=== PATIENT | female | born 2000 | race Two or more races ===

== ENCOUNTER 2024-10-02 15:26 | Emergency (ER) | payer OTHER ==
[~2024-10-02] VITALS: Ht 152.4 cm; Wt 62.1 kg
[2024-10-02] MEDS ORDERED: IPRATROPIUM/ALBUTEROL SULFATE 3 ML AMPUL.NEB IH SCH (16:45)
[2024-10-02] MEDS ORDERED: METHYLPREDNISOLONE SOD SUCC 125 MG VIAL IV ONE (16:45)
[2024-10-02] MEDS ORDERED: BUDESONIDE 0.5 MG/2 ML AMPUL.NEB IH ONE (16:45)
[2024-10-02] MEDS ORDERED: MAGNESIUM SULFATE IN WATER 50 ML IV ONE (16:45)
[2024-10-02 18:11] LABS: BASO % 0.3 % (0.1-1.2); EOS # 0.05 (0.04-0.54); EOS % 0.5 % (0.7-7.0); LYMPH # 1.45 (1.18-3.74); LYMPH % 13.7 % (19.3-53.1); MEAN PLATELET VOLUME 10.00 fl (9.4-12.4); MONO # 0.37 (0.24-0.82); MONO % 3.5 % (4.7-12.5); NEUT # 8.62 (1.56-6.13); NEUT % 81.6 % (34.0-71.1); RED CELL DISTRIBUTION WIDTH 11.9 % (11.6-14.4)
[2024-10-02 18:27] LABS: COVID-19 AG NEGATIVE (NEGATIVE)
[2024-10-02 18:34] LABS: ALT/SGPT 26.0 U/L (12-78); AST/SGOT 15.0 U/L (15-37); BILIRUBIN TOTAL 0.45 mg/dL (0.3-1.2); BUN CREA RATIO 18.0 (7.0-25.0); CREATININE SERUM 0.72 mg/dL (0.55-1.02); GFR 99.52; GLOBULINA 4.8 G/DL (2.4-3.5); GLUCOSE FASTING 106.0 mg/dL (65-100); OSMOLALITY SERUM 276.0 MOSM/KG (275-295)
[2024-10-02] MEDS ORDERED: AZITHROMYCIN500 MG PO (18:49)
[2024-10-02] MEDS ORDERED: BUDESONIDE0.5 MG/2 M IH (18:49)
[2024-10-02] MEDS ORDERED: BENZONATATE200 M1 PO (18:49)
[2024-10-02] MEDS ORDERED: MEDROLPACK PO (18:49)
[2024-10-02] MEDS ORDERED: SINGULAIR10 MG PO (19:00)
== END 2024-10-02 21:14 | disposition home or self-care (01) ==
LOC: ER 15:26
PROVIDERS: Preventive Medicine Public Health & General Preventive Medicine
DX: J45.901 Unspecified asthma with (acute) exacerbation (principal); J45.909 Unspecified asthma, uncomplicated; Z20.822 Contact with and (suspected) exposure to COVID-19

== ENCOUNTER 2025-01-26 14:30 | Emergency (ER) | payer OTHER ==
[~2025-01-26] VITALS: Ht 152.4 cm; Wt 68.0 kg
[~2025-01-26 14:30] MED LIST: AZITHROMYCIN500 MG PO; BENZONATATE200 M1 PO; BUDESONIDE0.5 MG/2 M IH; MEDROLPACK PO; SINGULAIR10 MG PO
[2025-01-26] MEDS ORDERED: AZITHROMYCIN250 MG PO (15:51)
[2025-01-26] MEDS ORDERED: ALBUTEROL SULFATE 3 ML/2.5 MG AMPUL.NEB IH SCH (16:15)
[2025-01-26] MEDS ORDERED: 0.9 % SODIUM CHLORIDE 1,000 ML IV ONE (16:15)
[2025-01-26] MEDS ORDERED: ACETAMINOPHEN 500 MG GEL..CAP PO ONE ×2 (16:15→18:55)
[2025-01-26] MEDS ORDERED: METHYLPREDNISOLONE SOD SUCC 125 MG VIAL IV ONE (16:15)
[2025-01-26] MEDS ORDERED: GUAIFENESIN 200 MG/10 ML BLIST.PACK PO ONE ×2 (16:15→18:56)
[2025-01-26] MEDS ORDERED: IPRATROPIUM BROMIDE 0.5 MG/2.5 ML AMPUL.NEB IH ONE ×2 (16:15→19:18)
[2025-01-26] MEDS ORDERED: METHYLPREDNISOLONE SOD SUCC 125 MG VIAL ONE (18:56)
[2025-01-26] MEDS ORDERED: ALBUTEROL SULFATE 3 ML/2.5 MG AMPUL.NEB IH ONE (19:18)
[2025-01-26 19:29] LABS: BASO % 0.7 % (0.1-1.2); EOS # 0.56 (0.04-0.54); EOS % 7.4 % (0.7-7.0); LYMPH # 2.71 (1.18-3.74); LYMPH % 35.8 % (19.3-53.1); MEAN PLATELET VOLUME 9.90 fl (9.4-12.4); MONO # 0.60 (0.24-0.82); MONO % 7.9 % (4.7-12.5); NEUT # 3.64 (1.56-6.13); NEUT % 48.1 % (34.0-71.1); RED CELL DISTRIBUTION WIDTH 12.4 % (11.6-14.4)
[2025-01-26 20:06] LABS: ALT/SGPT 38.0 U/L (12-78); AST/SGOT 24.0 U/L (15-37); BILIRUBIN TOTAL 0.26 mg/dL (0.3-1.2); BUN CREA RATIO 20.0 (7.0-25.0); CREATININE SERUM 0.64 mg/dL (0.55-1.02); GFR 113.06; GLOBULINA 4.2 G/DL (2.4-3.5); GLUCOSE FASTING 89.0 mg/dL (65-100); OSMOLALITY SERUM 285.0 MOSM/KG (275-295)
[2025-01-26 21:03] LABS: URINE APPEARANCE Clear; URINE BILIRRUBIN Negative (NEGATIVE); URINE BLOOD Negative; URINE COLOR Yellow; URINE GLUCOSE Negative (NEGATIVE); URINE KETONE Trace (NEGATIVE); URINE LEUKOCYTE Negative; URINE NITRATE Negative; URINE PROTEIN Negative (NEGATIVE); URINE UROBILINOGEN 1.0 E.U./dl
[2025-01-26 21:07] LABS: URINE BACTERIA 71.9 uL (0.0-1933); URINE EPITHELIAL CELLS 2.4 uL (0.0-38.8)
[2025-01-26 21:18] LABS: COVID-19 AG NEGATIVE (NEGATIVE)
[2025-01-26 21:28] LABS: URINE CAST 0.14 uL (0.0-1.40); URINE RBC 1.1 uL (0.0-20.8); URINE WBC 1.5 uL (0.0-23.2)
[2025-01-26] MEDS ORDERED: MEDROLPACK PO (21:48)
[2025-01-26] MEDS ORDERED: BENZONATATE100 MG PO (21:48)
[2025-01-26] MEDS ORDERED: ALBUTEROL1.25 MG/3 IH (21:48)
== END 2025-01-26 22:01 | disposition home or self-care (01) ==
LOC: ER 14:31
DX: J45.901 Unspecified asthma with (acute) exacerbation (principal); Z20.822 Contact with and (suspected) exposure to COVID-19

== ENCOUNTER 2025-01-30 17:56 | Emergency (ER) | payer OTHER ==
[~2025-01-30] VITALS: Ht 152.4 cm; Wt 68.0 kg
[~2025-01-30 17:56] MED LIST changes: +ALBUTEROL1.25 MG/3 IH; +AZITHROMYCIN250 MG PO; +BENZONATATE100 MG PO
[2025-01-30] MEDS ORDERED: MAGNESIUM SULFATE IN WATER 50 ML IV ONE (18:30)
[2025-01-30] MEDS ORDERED: METHYLPREDNISOLONE SOD SUCC 125 MG VIAL IV ONE (18:30)
[2025-01-30] MEDS ORDERED: IPRATROPIUM BROMIDE 0.5 MG/2.5 ML AMPUL.NEB IH SCH (18:30)
[2025-01-30] MEDS ORDERED: LEVALBUTEROL HCL 1.25 MG/3 ML SOLUTION IH SCH (18:30)
[2025-01-30] MEDS ORDERED: LEVALBUTEROL HCL 1.25 MG/3 ML SOLUTION IH ONE (19:32)
[2025-01-30] MEDS ORDERED: IPRATROPIUM BROMIDE 0.5 MG/2.5 ML AMPUL.NEB IH ONE (19:33)
[2025-01-30] MEDS ORDERED: MAGNESIUM SULFATE 50% 1,000 MG/2 ML VIAL ONE (19:34)
[2025-01-30] MEDS ORDERED: METHYLPREDNISOLONE SOD SUCC 125 MG VIAL ONE (19:35)
[2025-01-30 20:14] LABS: BASO % 0.1 % (0.1-1.2); EOS # 0.00 (0.04-0.54); EOS % 0.0 % (0.7-7.0); LYMPH # 0.92 (1.18-3.74); LYMPH % 6.9 % (19.3-53.1); MEAN PLATELET VOLUME 9.70 fl (9.4-12.4); MONO # 1.38 (0.24-0.82); MONO % 10.4 % (4.7-12.5); NEUT # 10.86 (1.56-6.13); NEUT % 81.8 % (34.0-71.1); RED CELL DISTRIBUTION WIDTH 12.5 % (11.6-14.4)
[2025-01-30 20:40] LABS: ALT/SGPT 33 U/L (12-78); AST/SGOT 23 U/L (15-37); BILIRUBIN TOTAL 0.43 mg/dL (0.3-1.2); BUN CREA RATIO 14 (7.0-25.0); CREATININE SERUM 0.72 mg/dL (0.55-1.02); GFR 98.69; GLOBULINA 4.1 G/DL (2.4-3.5); GLUCOSE FASTING 101 mg/dL (65-100); HCG QUANTITATIVE < 1 mUI/mL (1-3); OSMOLALITY SERUM 279 MOSM/KG (275-295)
[2025-01-30] MEDS ORDERED: PEPCID AC20 MG PO (20:54)
[2025-01-30] MEDS ORDERED: AZITHROMYCIN500 MG PO (20:54)
[2025-01-30] MEDS ORDERED: SINGULAIR10 MG PO (20:54)
[2025-01-30] MEDS ORDERED: MEDROLPACK PO (20:54)
== END 2025-01-30 21:23 | disposition home or self-care (01) ==
LOC: ER 17:56
PROVIDERS: General Practice
DX: J45.901 Unspecified asthma with (acute) exacerbation (principal); R06.02 Shortness of breath

== ENCOUNTER 2025-02-01 13:46 | Emergency (ER) | payer OTHER ==
[~2025-02-01] VITALS: Ht 152.4 cm; Wt 68.0 kg
[~2025-02-01 13:46] MED LIST changes: +PEPCID AC20 MG PO
[2025-02-01] MEDS ORDERED: ZITHROMAX500 MG PO (14:48)
[2025-02-01] MEDS ORDERED: PEPCID AC20 MG PO (14:48)
[2025-02-01] MEDS ORDERED: IPRATROPIUM BROMIDE 0.5 MG/2.5 ML AMPUL.NEB IH SCH (15:15)
[2025-02-01] MEDS ORDERED: LEVALBUTEROL HCL 1.25 MG/3 ML SOLUTION IH SCH (15:15)
[2025-02-01] MEDS ORDERED: GUAIFENESIN/DEXTROMETHORPHAN 100MG/10ML BLIST.PACK PO ONE (15:15)
[2025-02-01] MEDS ORDERED: METHYLPREDNISOLONE SOD SUCC 125 MG VIAL IV ONE (15:15)
[2025-02-01] MEDS ORDERED: METHYLPREDNISOLONE SOD SUCC 125 MG VIAL ONE (15:59)
[2025-02-01] MEDS ORDERED: GUAIFEN/DEXTROMETHORPHAN/PE 10 ML BLIST.PACK PO ONE (15:59)
[2025-02-01] MEDS ORDERED: IPRATROPIUM BROMIDE 0.5 MG/2.5 ML AMPUL.NEB IH ONE (16:32)
[2025-02-01] MEDS ORDERED: LEVALBUTEROL HCL 1.25 MG/3 ML SOLUTION IH ONE (16:32)
[2025-02-01 16:57] LABS: BASO % 0.2 % (0.1-1.2); EOS # 0.09 (0.04-0.54); EOS % 1.4 % (0.7-7.0); LYMPH # 1.93 (1.18-3.74); LYMPH % 30.4 % (19.3-53.1); MEAN PLATELET VOLUME 9.60 fl (9.4-12.4); MONO # 0.96 (0.24-0.82); NEUT # 3.33 (1.56-6.13); NEUT % 52.4 % (34.0-71.1); RED CELL DISTRIBUTION WIDTH 12.7 % (11.6-14.4)
[2025-02-01 17:07] LABS: MONO % 15.1 % (4.7-12.5)
[2025-02-01 17:24] LABS: COVID-19 AG NEGATIVE (NEGATIVE)
[2025-02-01 17:36] LABS: ALT/SGPT 44.0 U/L (12-78); AST/SGOT 25.0 U/L (15-37); BILIRUBIN TOTAL 0.3 mg/dL (0.3-1.2); BUN CREA RATIO 22.0 (7.0-25.0); CREATININE SERUM 0.79 mg/dL (0.55-1.02); GFR 88.67; GLOBULINA 4.2 G/DL (2.4-3.5); GLUCOSE FASTING 90.0 mg/dL (65-100); OSMOLALITY SERUM 279.0 MOSM/KG (275-295)
[2025-02-01] MEDS ORDERED: TUSSIN DM LIQU118 ML PO (18:03)
[2025-02-01] MEDS ORDERED: OSEL75CA PO (18:03)
[2025-02-01] MEDS ORDERED: SINGULAIR10 MG PO (18:03)
[2025-02-01] MEDS ORDERED: OSELTAMIVIR PHOSPHATE 75 MG CAPSULE PO ONE ×2 (18:15→18:33)
[2025-02-01] MEDS ORDERED: ALBUTEROL1.25 MG/3 IH (18:20)
== END 2025-02-01 21:24 ==
LOC: ER 13:47
PROVIDERS: General Practice
DX: J10.1 Influenza due to other identified influenza virus with other respiratory manifestations (principal); J45.998 Other asthma; Z20.822 Contact with and (suspected) exposure to COVID-19

== ENCOUNTER 2025-02-03 07:40 | Emergency (ER) | payer OTHER ==
[~2025-02-03] VITALS: Ht 152.4 cm; Wt 68.0 kg
[~2025-02-03 07:40] MED LIST changes: +OSEL75CA PO; +TUSSIN DM LIQU118 ML PO; +ZITHROMAX500 MG PO
[2025-02-03] MEDS ORDERED: PYRIDIUM200 MG PO (08:00)
[2025-02-03] MEDS ORDERED: CLINDAMYCIN HC300 MG PO (08:01)
[2025-02-03] MEDS ORDERED: DEXAMETHASONE SODIUM PHOSPHATE 4 MG/ML VIAL IM STA (08:27)
[2025-02-03] MEDS ORDERED: DEXAMETHASONE SODIUM PHOSPHATE 4 MG/ML VIAL ONE (08:30)
[2025-02-03 08:59] LABS: BASO % 0.1 % (0.1-1.2); EOS # 0.03 (0.04-0.54); EOS % 0.4 % (0.7-7.0); LYMPH # 2.56 (1.18-3.74); LYMPH % 34.7 % (19.3-53.1); MEAN PLATELET VOLUME 9.40 fl (9.4-12.4); MONO # 0.91 (0.24-0.82); NEUT # 3.83 (1.56-6.13); NEUT % 52.0 % (34.0-71.1); RED CELL DISTRIBUTION WIDTH 12.5 % (11.6-14.4)
[2025-02-03 09:00] LABS: MONO % 12.3 % (4.7-12.5)
[2025-02-03 09:01] LABS: URINE APPEARANCE Clear; URINE BILIRRUBIN Small (NEGATIVE); URINE BLOOD Negative; URINE COLOR Orange; URINE GLUCOSE Negative (NEGATIVE); URINE KETONE Negative (NEGATIVE); URINE LEUKOCYTE Small; URINE NITRATE Positive; URINE PROTEIN 30 (NEGATIVE); URINE UROBILINOGEN 1.0 E.U./dl
[2025-02-03 09:03] LABS: ERYTHROCYTE SEDIMENTATION RATE 22 mm/hr (0-20)
[2025-02-03 09:05] LABS: URINE BACTERIA 57.5 uL (0.0-1933); URINE EPITHELIAL CELLS 4.4 uL (0.0-38.8); URINE RBC 2.3 uL (0.0-20.8)
[2025-02-03 09:49] LABS: URINE CAST 0.14 uL (0.0-1.40); URINE WBC 1.3 uL (0.0-23.2)
[2025-02-03 11:00] LABS: ALT/SGPT 44.0 U/L (12-78); AST/SGOT 19.0 U/L (15-37); BILIRUBIN TOTAL 0.43 mg/dL (0.3-1.2); BUN CREA RATIO 27.0 (7.0-25.0); CREATININE SERUM 0.79 mg/dL (0.55-1.02); GFR 88.67; GLOBULINA 4.3 G/DL (2.4-3.5); GLUCOSE FASTING 83.0 mg/dL (65-100); OSMOLALITY SERUM 278.0 MOSM/KG (275-295)
== END 2025-02-03 13:58 | disposition home or self-care (01) ==
LOC: ER 07:40
PROVIDERS: Physician Assistant Medical
DX: B27.80 Other infectious mononucleosis without complication (principal); J10.1 Influenza due to other identified influenza virus with other respiratory manifestations